=== PATIENT | female | born 1955 | race Caucasian/White ===

== ENCOUNTER 2017-12-02 09:24 | Inpatient (IN) | payer MEDICARE ==
[2017-12-02] MEDS ORDERED: Sodium Chloride 0.9% 1,000 ML IV ONE (10:30)
[2017-12-02 11:08] LABS: % BASOPHILS 0.6 % (0.0-2.0); % EOSINOPHILS 0.2 % (0.0-5.0); % LYMPHOCYTES 8.8 % (20.0-50.0); % MONOCYTES 5.8 % (2.0-10.0); % NEUTROPHILS 84.6 % (40.0-80.0); HEMOGLOBIN 12.9 gm/dL (12-16); LYMPHOCYTE ABSOLUTE 0.5 Th/cmm (1.5-3.0); MEAN CELL VOLUME 92.8 fl (81-100); MEAN CORPUSCULAR HEMOGLOBIN 30.8 pg (27.0-31.0); MEAN CORPUSCULAR HGB CONC 33.2 pg (28.0-36.0); MEAN PLATELET VOLUME 7.8 fl; MONOCYTE ABSOLUTE 0.3 Th/cmm (0.3-1.0); NEUTROPHILE ABSOLUTE 4.9 Th/cmm (1.8-8.0); PLATELET COUNT 315 Th/cmm (150-400); RED CELL DISTRIBUTION WIDTH 11.7 % (11.5-20.0); WHITE BLOOD COUNT 5.7 Th/cmm (4.8-10.8)
[2017-12-02 11:21] LABS: ALB/GLOB RATIO 1.6 (1.0-1.8); ALBUMIN 4.9 gm/dL (3.7-5.3); ALKALINE PHOSPHATASE 121 U/L (34-104); AMYLASE SERUM 111 U/L (29-103); ANION GAP 14.7 (7.0-16.0); BILIRUBIN,TOTAL 0.4 mg/dL (0.3-1.0); BUN - UREA NITROGEN 12 mg/dL (7-25); CALCIUM SERUM 10.1 mg/dL (8.6-10.3); CHLORIDE 96 mEq/L (98-107); CHOLESTEROL 237 mg/dL (<200); CREATININE - SERUM 0.6 mg/dL (0.6-1.2); CREATININE KINASE 47 U/L (30-223); GFR AFRICAN-AMERICAN > 60.0 ml/min (>90); GFR NON AFRICAN-AMERICAN > 60.0 ml/min; GLUCOSE 123 mg/dL (70-105); HDL -HIGH DENSITY LIPOPROTEIN 103 mg/dL (23-92); POTASSIUM SERUM 3.7 mEq/L (3.5-5.1); SGOT 17 U/L (13-39); SGPT/ALT 10 U/L (7-52); SODIUM SERUM 132 mEq/L (136-145); TOTAL PROTEIN,SERUM 7.9 gm/dL (6.0-8.3); TRIGLYCERIDES 54 mg/dL (<150)
[2017-12-02 11:23] LABS: LIPASE < 3 U/L (11-82)
[2017-12-02 11:36] LABS: INR 1.04 (0.5-1.4); PROTHROMBIN TIME (TEST) 10.8 SECONDS (9.5-11.5)
--- NOTE | 2017-12-02 11:43 | ED Physician Chart ---
ED Chief Complaint/HPI - Patient Information Date Seen:: 12/02/17 Time Seen:: 09:45 Chief Complaint:: Abdominal Pain History of Present Illness:: onset x 3 days of intermittent, diffuse, crampy abdominal, N/V/D x 13; pt denies trauma, H/As, S/T, neck pain, C/P, SOB, A/C, fever, chills, or urinary s/ s Allergies:: Allergies Allergy/AdvReac Type Severity Reaction Status Date / Time ciprofloxacin [From Cipro] Allergy Mild Verified 12/02/17 09:40 pentoxifylline [From Trental] Allergy Mild Verified 12/02/17 09:40 azithromycin Allergy Verified 12/02/17 09:40 [From Zithromax Z-Fady] Vitals:: Vital Signs - 8 hr 12/02/17 09:45 Temp 98.9 F HR 118 RR 18 BP 180/100 O2 Sat % 99 Historian:: Patient Review:: Nurse's Note Reviewed ED Review of Systems - Review of Systems General/Constitutional: No fever, No chills, No weight loss, No weakness, No diaphoresis, No edema, No loss of appetite Skin: No skin lesions, No rash, No bruising Head: No headache, No light-headedness Eyes: No loss of vision, No pain, No diplopia ENT: No earache, No nasal drainage, No sore throat, No tinnitus Neck: No neck pain, No swelling, No thyromegaly, No stiffness, No mass noted Cardio Vascular: No chest pain, No palpitations, No PND, No orthopnea, No edema Pulmonary: No SOB, No cough, No sputum, No wheezing GI: Nausea, Vomiting, Diarrhea, Pain, No melena, No hematochezia, No constipation, No hematemesis G/U: No dysuria, No frequency, No hematuria, No nacturia Division Director: No vaginal discharge, No abnormal vaginal bleed, No contraction Musculoskeletal: No bone or joint pain, No back pain, No muscle pain Endocrine: No polyuria, No polydipsia Psychiatric: No prior psych history, No depression, No anxiety, No suicidal ideation, No homicidal ideation, No auditory hallucination, No visual hallucination Hematopoietic: No bruising, No lymphadenopathy Allergic/Immuno: No urticaria, No angioedema Neurological: No syncope, No focal symptoms, No weakness, No paresthesia, No headache, No seizure, No dizziness, No confusion, No vertigo ED Past Medical History - Past Medical History Obtainable: Yes Past Medical History: HTN Family History: HTN Social History: Smoker, No Alcohol, No Drug Use, Single Surgical History: None Psychiatricy History: None Medication: Reviewed ED Physical Exam - Physical Examination General/Constitutional: Awake, Well-developed, well-nourished, Alert, No distress, GCS 15, Non-toxic appearing, Ambulatory Head: Atraumatic Eyes: Lids, conjuctiva normal, PERRL, EOMI Skin: Nl inspection, No rash, No skin lesions, No ecchymosis, Well hydrated, No lymphadenopathy ENMT: External ears, nose nl, TM canals nl, Nasal exam nl, Lips, teeth, gums nl , Oropharynx nl, Tonsils nl Neck: Nontender, Full ROM w/o pain, No JVD, No nuchal rigidity, No bruit, No mass, No stridor Respiratory: Nl effort/Exclusion, Clear to Auscultation, No Wheeze/Rhonchi/Rales Cardio Vascular: RRR, No murmur, gallop, rubs, NL S1 S2, Carotid/Femoral/Distal pulses equal bilaterally GI: No tenderness/rebounding/guarding, No organomegaly, No hernia, Normal BS's, Nondistended, No mass/bruits, No McBurney tenderness, Rectum exam nl : No CVA tenderness Extremities: No tenderness or effusion, Full ROM, normal strength in all extremities, No edema, Normal digits & nails Neuro/Psych: Alert/oriented, DTR's symmetric, Normal sensory exam, Normal motor strength, Judgement/insight normal, Mood normal, Normal gait, No focal deficits Misc: Normal back, No paraspinal tenderness ED Labs/Radiology/EKG Results - Lab Results Results: Laboratory Tests 12/02/17 12/02/17 12/02/17 10:55 10:55 10:55 WBC 5.7 RBC 4.20 Hgb 12.9 Hct 39.0 L MCV 92.8 MCH 30.8 MCHC Differential 33.2 RDW 11.7 Plt Count 315 MPV 7.8 Neutrophils % 84.6 H Lymphocytes % 8.8 L Monocytes % 5.8 Eosinophils % 0.2 Basophils % 0.6 PT 10.8 INR 1.04 Sodium 132 L Potassium 3.7 Chloride 96 L Carbon Dioxide 25.0 Anion Gap 14.7 BUN 12 Creatinine 0.6 Est GFR ( Amer) > 60.0 Est GFR (Non-Af Amer) > 60.0 BUN/Creatinine Ratio 20.0 Glucose 123 H Calcium 10.1 Total Bilirubin 0.4 AST 17 ALT 10 Alkaline Phosphatase 121 H Creatine Kinase 47 Troponin I B-Natriuretic Peptide Total Protein 7.9 Albumin 4.9 Globulin 3.0 Albumin/Globulin Ratio 1.6 Triglycerides 54 Cholesterol 237 H LDL Cholesterol Direct 120 HDL Cholesterol 103 H Amylase 111 H Lipase < 3 L Serum , Qual 12/02/17 12/02/17 12/02/17 10:55 10:55 10:55 WBC RBC Hgb Hct MCV MCH MCHC Differential RDW Plt Count MPV Neutrophils % Lymphocytes % Monocytes % Eosinophils % Basophils % PT INR Sodium Potassium Chloride Carbon Dioxide Anion Gap BUN Creatinine Est GFR ( Amer) Est GFR (Non-Af Amer) BUN/Creatinine Ratio Glucose Calcium Total Bilirubin AST ALT Alkaline Phosphatase Creatine Kinase Troponin I 0.01 B-Natriuretic Peptide 108.0 H Total Protein Albumin Globulin Albumin/Globulin Ratio Triglycerides Cholesterol LDL Cholesterol Direct HDL Cholesterol Amylase Lipase Serum , Qual NEGATIVE Comments:: Na+: 132; Amylase: 111 - Radiology Results Comments:: NAD - EKG Interpretations EKG Time:: 10:37 Rate & Rhythm: 109; ST Comments:: non-specific st-t changes ED Septic Shock - . Is Septic Shock (SBP<90, OR Lactate>4 mmol\L) present?: No - <6hrs of presentation: Vital Signs: Vital Signs - 8 hr 12/02/17 09:45 Temp 98.9 F HR 118 RR 18 BP 180/100 O2 Sat % 99 ED Reassessment (Disposition) - Reassessment Reassessment Condition:: Improved - Diagnosis Diagnosis:: Dx: Abdominal Pain; N/V/D; AGE; Dehydration; Pancreatitis; Hyponatremia - Aftercare/Follow up Instructions Aftercare/Follow-Up Instructions:: Counseled pt regarding lab results/diagnosis & need follow up, Counseled pt & family regarding lab results/diagnosis & need follow up - Patient Disposition Discharge/Transfer:: Acute Care w/in this hosp Accepting Physician:: Dr. Prabhu Rodriguez Time Called:: 1130 Time Responded:: 11:30 Admitted to:: Med/Surg Spoke to:: Dr. Rodriguez Admitting Medical Physician:: Dr. Rodriguez Condition at Disposition:: Stable, Improved
[2017-12-02] MEDS ORDERED: IOHEXOL 300mgI/mL 100 ML VIAL ONE (12:34)
--- NOTE | 2017-12-02 14:04 | Diagnostic Imaging Report ---
CT abdomen and pelvis with intravenous contrast Indication: Abdominal pain Comparison: None, Technique: Axial images were obtained from the lung bases to the bilateral proximal femurs with IV contrast. Coronal reconstructions were made. total DLP: 303, CTDI7.5 FINDINGS: Hypoventilatory and atelectatic changes of the lungs are noted. Hepatic cysts are noted the largest adjacent to the falciform ligament measuring 1.5 x 1.3 cm. Additional subcentimeter low-density lesions are noted to small to characterize but suggestive of cysts. No radiopaque gallstones identified. No focal splenic lesions. Limited assessment of the pancreas demonstrates no focal lesions. No focal adrenal areas. No hydronephrosis. Sub-CM left renal lesion is noted, too small to characterize but probably representing a cyst. The urinary bladder is underdistended, limiting its evaluation. No evidence of appendicitis. Mild stool is noted greatest in the ascending colon and cecal region. No evidence of appendicitis. No free fluid or free air. Mild atherosclerosis is noted. Mild degenerative changes spine are noted with mild scoliosis. There is 3 mm anterolisthesis of L4 on L5 with vacuum disc phenomenon at this level. IMPRESSION: No evidence of bowel obstruction Mild stool greatest within the ascending colon and cecal region. No evidence of hydronephrosis. Hepatic cysts. Degenerative changes and 3 mm anterolisthesis of L4 on L5 likely due to underlying facet arthropathy.
[2017-12-02 14:56] VITALS: BP 168/87
[2017-12-02] MEDS ORDERED: D5-0.45NS 1,000 ML IV SCH (15:43)
--- NOTE | 2017-12-02 18:28 | History and Physical ---
History of Present Illness - HPI Chief Complaint: Abdominal Pain x 3 days HPI: 61 y/o female who presents to [facility] ER for 3 day history of abdominal pain which is intermittent, diffuse and cramps with nausea, vomiting and diarrhea. The patient denies trauma. Denies chest pain or shortness of breath. Denies fever, chills, or urinary symptoms. No neck pain PMH includes HTN Meds see medlist. Initial labwork WBC 5.7 H/H 12.9/39.0 platelets 315K Na 132 K 3.7 Bun 12 Cr 0.6 glucose 123 Amylase 111 Lipase <3 Patient was subsequently admitted for further evaluation and treatment. Vital Signs: Last Vital Signs Temp 98.2 F 12/02/17 14:50 Pulse 118 12/02/17 14:50 Resp 19 12/02/17 15:57 BP 168/87 12/02/17 14:56 Pulse Ox 97 12/02/17 14:50 Past Medical History Cardiovascular: Report: HTN Pulmonary: Report: No Pertinent Hx CUSTOMER RESPONSE REPRESENTATIVE: Report: No Pertinent Hx GI: Report: No Pertinent Hx Psych: Report: No Pertinent Hx Musculoskeletal: Report: No Pertinent Hx Rheumatologic: Report: No pertinent Hx Infectious Disease: Report: No Pertinent Hx Renal/: Report: No Pertinent Hx Endocrine: Report: No Pertinent Hx Dermatology: Report: No Pertinent Hx - Past Surgical History Past Surgical History: No pertinent Hx Social History Smoke: No Alcohol: None Drugs: None Lives: Alone - Medications Home Medications: Home Medication Medication Instructions Recorded Type Carbamazepine [Tegretol Xr] 400 mg PO BID 12/02/17 History Clonazepam [Clonazepam*] 0.5 mg PO TID 12/02/17 History Escitalopram Oxalate [Lexapro] 5 mg PO DAILY 12/02/17 History Lamotrigine [Lamictal] 200 mg PO DAILY 12/02/17 History Tizanidine HCl 4 mg PO DAILY 12/02/17 History Zolpidem Tartrate [Ambien Cr] 12.5 mg PO DAILY 12/02/17 History - Allergies Allergies/Adverse Reactions: Allergies Allergy/AdvReac Type Severity Reaction Status Date / Time ciprofloxacin [From Cipro] Allergy Mild Verified 12/02/17 09:40 pentoxifylline [From Trental] Allergy Mild Verified 12/02/17 09:40 azithromycin Allergy Verified 12/02/17 09:40 [From Zithromax Z-Fady] vortioxetine Allergy Verified 12/02/17 21:37 [From Trintellix] Review of Systems - Review of Systems Constitutional: Report: No Significant Eyes: Report: No Significant ENT: Report: No Significant Respiratory: Report: No Significant Cardiovascular: Report: No Significant Gastrointestinal: Report: Nausea, Vomiting, Abdominal Pain, Diarrhea Genitourinary: Report: No Significant Musculoskeletal: Report: No Significant Skin: Report: No Significant Neurological: Report: No Significant Physical Exam - Physical Exam HEENT: Report: Ears Nose Throat within normal limits, Pharnyx within normal limits Neck: Report: Within normal limits Cardiovascular Systems: Report: +s1/s2 noted, Regular, Rate and Rhythm Respiratory: Report: Breath Sounds are within normal limits, Clear to Auscultation of lung gillis Abdomen: Report: Abnormal Bowel Sounds. Denies: Guarding Extremities: Report: Non-tender to palpation. Skin: Report: Color of skin is within normal limits Neuro/Psych: Report: Mood affect is within normal limits, A+Ox3, CN II-XII intact - Assessment Assessment: Current Active Problems Problem Status Onset NAUSEA, VOMITING AND DIARRHEA Acute abdominal pain nausea, vomiting hyponatremia hypertension UTI - Plan Plan: keep NPO IV fluids IV Zofran IV Rocephin abd US GI consult
[2017-12-02] MEDS ORDERED: D5-0.9NS w/40 mEq KCL 1,000 ML IV SCH (18:45)
[2017-12-02] MEDS ORDERED: CLONAZEPAM 0.5 MG PO SCH (21:00)
[2017-12-02 23:55] LABS: URINE MICROSCOPIC INDICATED? YES; URINE SOURCE CLEAN C
[2017-12-03 00:06] LABS: URINE BILIRUBIN SMALL (NEGATIVE); URINE BLOOD MODERATE (NEGATIVE); URINE GLUCOSE (UA) NEGATIVE (NEGATIVE); URINE KETONE 40 mg/dL (NEGATIVE); URINE LEUKOCYTE ESTERASE NEGATIVE (NEGATIVE); URINE NITRATE NEGATIVE (NEGATIVE); URINE PH 7.5 (4.6 - 8.0); URINE PROTEIN TRACE mg/dL (NEGATIVE); URINE UROBILINOGEN 0.2 E.U./dL (0.2 - 1.0)
[2017-12-03 01:45] LABS: URINE CLARITY CLEAR (CLEAR); URINE COLOR YELLOW
[2017-12-03 01:50] LABS: URINE BACTERIA FEW /hpf (NONE SEEN); URINE EPITHELIAL CELLS FEW /lpf (FEW); URINE ICTOTEST NEGATIVE (NEGATIVE); URINE WBC 0-2 /hpf (0-5)
[2017-12-03] MEDS ORDERED: CLONAZEPAM 0.5 MG PO PRN (03:52)
[2017-12-03 06:32] LABS: % BASOPHILS 0.1 % (0.0-2.0); % EOSINOPHILS 0.8 % (0.0-5.0); % LYMPHOCYTES 20.9 % (20.0-50.0); % MONOCYTES 11.4 % (2.0-10.0); % NEUTROPHILS 66.8 % (40.0-80.0); HEMOGLOBIN 11.4 gm/dL (12-16); LYMPHOCYTE ABSOLUTE 0.9 Th/cmm (1.5-3.0); MEAN CELL VOLUME 93.1 fl (81-100); MEAN CORPUSCULAR HEMOGLOBIN 31.7 pg (27.0-31.0); MEAN PLATELET VOLUME 8.1 fl; MONOCYTE ABSOLUTE 0.5 Th/cmm (0.3-1.0); NEUTROPHILE ABSOLUTE 2.9 Th/cmm (1.8-8.0); PLATELET COUNT 254 Th/cmm (150-400); RED CELL DISTRIBUTION WIDTH 11.9 % (11.5-20.0)
[2017-12-03 06:35] LABS: HEMATOCRIT 33.5 % (41.0-60); WHITE BLOOD COUNT 4.3 Th/cmm (4.8-10.8)
[2017-12-03 06:46] LABS: ALB/GLOB RATIO 1.6 (1.0-1.8); ALBUMIN 4.1 gm/dL (3.7-5.3); ALKALINE PHOSPHATASE 98 U/L (34-104); ANION GAP 10.8 (7.0-16.0); BILIRUBIN,TOTAL 0.4 mg/dL (0.3-1.0); BUN - UREA NITROGEN 9 mg/dL (7-25); CALCIUM SERUM 9.1 mg/dL (8.6-10.3); CARBON DIOXIDE 23.6 mEq/L (21.0-31.0); CHLORIDE 99 mEq/L (98-107); CREATININE - SERUM 0.5 mg/dL (0.6-1.2); GFR AFRICAN-AMERICAN > 60.0 ml/min (>90); GFR NON AFRICAN-AMERICAN > 60.0 ml/min; GLUCOSE 121 mg/dL (70-105); POTASSIUM SERUM 3.4 mEq/L (3.5-5.1); SGOT 16 U/L (13-39); SGPT/ALT 9 U/L (7-52); SODIUM SERUM 130 mEq/L (136-145); TOTAL PROTEIN,SERUM 6.7 gm/dL (6.0-8.3)
[2017-12-03] MEDS ORDERED: cefTRIAXone 1 GM in Sodium Chloride 0.9% 50 ML IV SCH (07:00)
[2017-12-03] MEDS ORDERED: POTASSIUM CHLORIDE IV SCH (07:30)
--- NOTE | 2017-12-03 08:08 | General Progress Note ---
Subjective - Review of Systems Service Date: 12/03/17 Subjective: Patient was seen and examined. States that she was unable to sleep last night. abdominal pain better. less nausea and vomiting. Objective - Results Result Diagrams: 12/03/17 05:45 12/03/17 05:45 Recent Labs: Laboratory Last Values WBC 4.3 Th/cmm (4.8-10.8) L D 12/03/17 05:45 RBC 3.60 Mil/cmm (3.80-5.10) L 12/03/17 05:45 Hgb 11.4 gm/dL (12-16) L 12/03/17 05:45 Hct 33.5 % (41.0-60) L D 12/03/17 05:45 MCV 93.1 fl (81-100) 12/03/17 05:45 MCH 31.7 pg (27.0-31.0) H 12/03/17 05:45 MCHC Differential 34.0 pg (28.0-36.0) 12/03/17 05:45 RDW 11.9 % (11.5-20.0) 12/03/17 05:45 Plt Count 254 Th/cmm (150-400) 12/03/17 05:45 MPV 8.1 fl 12/03/17 05:45 Neutrophils % 66.8 % (40.0-80.0) 12/03/17 05:45 Lymphocytes % 20.9 % (20.0-50.0) 12/03/17 05:45 Monocytes % 11.4 % (2.0-10.0) H 12/03/17 05:45 Eosinophils % 0.8 % (0.0-5.0) 12/03/17 05:45 Basophils % 0.1 % (0.0-2.0) 12/03/17 05:45 PT 10.8 SECONDS (9.5-11.5) 12/02/17 10:55 INR 1.04 (0.5-1.4) 12/02/17 10:55 Sodium 130 mEq/L (136-145) L 12/03/17 05:45 Potassium 3.4 mEq/L (3.5-5.1) L 12/03/17 05:45 Chloride 99 mEq/L (98-107) 12/03/17 05:45 Carbon Dioxide 23.6 mEq/L (21.0-31.0) 12/03/17 05:45 Anion Gap 10.8 (7.0-16.0) 12/03/17 05:45 BUN 9 mg/dL (7-25) 12/03/17 05:45 Creatinine 0.5 mg/dL (0.6-1.2) L 12/03/17 05:45 Est GFR ( Amer) > 60.0 ml/min (>90) 12/03/17 05:45 Est GFR (Non-Af Amer) > 60.0 ml/min 12/03/17 05:45 BUN/Creatinine Ratio 18.0 12/03/17 05:45 Glucose 121 mg/dL (70-105) H 12/03/17 05:45 Calcium 9.1 mg/dL (8.6-10.3) 12/03/17 05:45 Total Bilirubin 0.4 mg/dL (0.3-1.0) 12/03/17 05:45 AST 16 U/L (13-39) 12/03/17 05:45 ALT 9 U/L (7-52) 12/03/17 05:45 Alkaline Phosphatase 98 U/L (34-104) 12/03/17 05:45 Creatine Kinase 47 U/L (30-223) 12/02/17 10:55 Troponin I 0.01 ng/mL (0.01-0.05) 12/02/17 10:55 B-Natriuretic Peptide 108.0 pg/mL (5.0-100.0) H 12/02/17 10:55 Total Protein 6.7 gm/dL (6.0-8.3) 12/03/17 05:45 Albumin 4.1 gm/dL (3.7-5.3) 12/03/17 05:45 Globulin 2.6 gm/dL 12/03/17 05:45 Albumin/Globulin Ratio 1.6 (1.0-1.8) 12/03/17 05:45 Triglycerides 54 mg/dL (<150) 12/02/17 10:55 Cholesterol 237 mg/dL (<200) H 12/02/17 10:55 LDL Cholesterol Direct 120 mg/dL (75-193) 12/02/17 10:55 HDL Cholesterol 103 mg/dL (23-92) H 12/02/17 10:55 Amylase 111 U/L (29-103) H 12/02/17 10:55 Lipase < 3 U/L (11-82) L 12/02/17 10:55 Serum , Qual NEGATIVE (NEGATIVE) 12/02/17 10:55 Urine Source CLEAN C 12/02/17 21:00 Urine Color YELLOW 12/02/17 21:00 Urine Clarity CLEAR (CLEAR) 12/02/17 21:00 Urine pH 7.5 (4.6 - 8.0) 12/02/17 21:00 Ur Specific [place] 1.010 (1.005-1.030) 12/02/17 21:00 Urine Protein TRACE mg/dL (NEGATIVE) 12/02/17 21:00 Urine Glucose (UA) NEGATIVE mg/dL (NEGATIVE) 12/02/17 21:00 Urine Ketones 40 mg/dL (NEGATIVE) H 12/02/17 21:00 Urine Blood MODERATE (NEGATIVE) H 12/02/17 21:00 Urine Nitrate NEGATIVE (NEGATIVE) 12/02/17 21:00 Urine Bilirubin SMALL (NEGATIVE) H 12/02/17 21:00 Urine Ictotest NEGATIVE (NEGATIVE) 12/02/17 21:00 Urine Urobilinogen 0.2 E.U./dL (0.2 - 1.0) 12/02/17 21:00 Ur Leukocyte Esterase NEGATIVE (NEGATIVE) 12/02/17 21:00 Urine RBC 2-5 /hpf (0-5) 12/02/17 21:00 Urine WBC 0-2 /hpf (0-5) 12/02/17 21:00 Ur Epithelial Cells FEW /lpf (FEW) 12/02/17 21:00 Urine Bacteria FEW /hpf (NONE SEEN) 12/02/17 21:00 - Physical Exam Vitals and I&O: Vital Signs Temp 97.7 F 12/03/17 04:00 Pulse 107 12/03/17 04:00 Resp 20 12/03/17 04:00 BP 167/80 12/03/17 04:00 Pulse Ox 98 12/03/17 04:00 Intake & Output 12/02/17 12/03/17 12/03/17 18:59 06:59 18:59 Weight (lbs) 46.357 kg 46.402 kg Other: # Voids 2 4 # Bowel Movements 0 Weight Source Bedscale Bedscale Active Medications: Current Medications Carbamazepine (Tegretol) 400 mg PO BID BIGG PRN Reason: Protocol Stop: 01/31/18 16:59 Last Admin: 12/02/17 17:00 Dose: Not Given Escitalopram Oxalate (Lexapro) 5 mg PO DAILY BIGG PRN Reason: Protocol Stop: 02/01/18 08:59 Potassium Chloride/Dextrose/Sod Cl (D5-0.9ns W/40 Meq Kcl) 1,000 mls @ 75 mls/ hr IV .[id number] BIGG Stop: 01/31/18 18:44 Ceftriaxone Sodium 1 gm/ (Sodium Chloride) 50 mls @ 100 mls/hr IV Q24HR [facility] Stop: 02/01/18 06:59 Potassium Chloride (Potassium Chloride) 20 meq in 100 mls @ 50 mls/hr IV Q2H [facility] Stop: 12/03/17 11:29 Lamotrigine (Lamictal) 200 mg PO DAILY [facility] Stop: 02/01/18 08:59 Lorazepam (Ativan) 0.5 mg IVP Q4HR PRN; Protocol PRN Reason: Anxiety Stop: 02/01/18 07:45 Miscellaneous (Clonazepam [Clonazepam*]) 0.5 mg PO TID PRN PRN Reason: Anxiety Stop: 01/31/18 20:59 Ondansetron HCl (Zofran) 4 mg IV Q6H PRN PRN Reason: Nausea / Vomiting Stop: 01/31/18 15:43 Last Admin: 12/03/17 00:22 Dose: 4 mg Pantoprazole Sodium (Protonix) 40 mg IVP DAILY [facility] Stop: 02/01/18 08:59 Tizanidine HCl (Zanaflex) 4 mg PO DAILY [facility] Stop: 02/01/18 08:59 Zolpidem Tartrate (Ambien) 5 mg PO HS PRN PRN Reason: Insomnia Stop: 02/01/18 07:38 General: Alert, Oriented x3 HEENT: Atraumatic, PERRLA Neck: Supple Cardiovascular: Regular rate, Normal S1, Normal S2 Lungs: Clear to auscultation Abdomen: Bowel sounds, Soft Extremities: no Clubbing, no Cyanosis Assessment/Plan - Problem List Patient Problems: All Active Problems NAUSEA, VOMITING AND DIARRHEA (Acute) - Assessment Assessment: Current Active Problems Problem Status Onset NAUSEA, VOMITING AND DIARRHEA Acute abdominal pain nausea, vomiting hyponatremia hypertension UTI - Plan Plan: keep NPO IV fluids IV Zofran IV Rocephin abd US GI consult
[2017-12-03] MEDS ORDERED: Potassium Chloride 40 MEQ, Lidocaine 1% 20mL Vial 25 MG in Sodium Chloride 0.9% 250 ML IV ONE (08:32)
[2017-12-03] MEDS ORDERED: ZOLPIDEM TARTRATE 12.5 MG PO SCH (09:00)
[2017-12-03] MEDS ORDERED: Non-Formulary Item 1 EA (Carbamazepine [Tegretol Xr] 400 MG) PO SCH (09:00)
--- NOTE | 2017-12-03 10:23 | Consultation ---
DATE OF CONSULTATION: 12/03/2017 AGE: 61. SEX: Female. PHYSICIAN: Dr. Malik. BRICKMASON HELPER: Dr. Lee. TYPE OF THE REPORT: Psychiatric consult. REASON FOR THE CONSULT: Adjusting psychotropic medications. HISTORY OF PRESENT ILLNESS: The patient is a 61-year-old female who was admitted to the hospital because of nausea and vomiting. The patient has been also anxious. The patient has been feeling depressed because of her nausea. The patient has history of bipolar disorder and the patient has not been able to take any of her medications at this time because of her vomiting. She also has been feeling sad and depressed. Her medications is upheld at this time. The patient is supposed to take Lexapro as well as Lamictal. She denies any intention to harm herself or others. PAST PSYCHIATRIC HISTORY: The patient has a history of bipolar disorder and the psychiatric hospitalization. The patient denies any recent history of hospitalization. PAST MEDICAL HISTORY: The patient admitted to the hospital with nausea. SOCIAL HISTORY: The patient is for the second time and living with her . She has 2 sons and 1 daughter. She denies any alcohol or any street drug use. ALLERGIES: TRINTELLIX. MENTAL STATUS EXAM: The patient appears her stated age. Anxious. Cooperative. Thought processes are mainly goal directed. The patient denies any auditory or visual hallucinations or delusions. She denies any intention to harm herself or others. The patient is alert and oriented to time, place, person, and situation. Intact immediate, recent and remote memories. Fair insight. Fair judgment. She seems to be of average intelligence based on her verbal ability. ASSESSMENT: PRIMARY DIAGNOSIS: Bipolar disorder, depressed episode, moderate to severe. TREATMENT PLAN: We will continue to monitor her behavior and her condition closely. We will start individual as well as milieu psychotherapy. We will monitor psychotropic medications and at this time we will give Ativan on a p.r.n. basis. We will give it IV until patient can take p.o. medications. The patient will be given her psychotropic medications when she is able to tolerate her medications. Thanks to Dr. Malik and will follow up with you. [facility]# [id number]
[2017-12-03] MEDS: Escitalopram Oxalate 5 mg Tab PO SCH (11:26)
--- NOTE | 2017-12-03 12:11 | Diagnostic Imaging Report ---
Ultrasound abdomen HISTORY: Abdominal pain COMPARISON: CT abdomen and pelvis on 12/02/2017 Technique: Sonography of the abdomen was performed in multiple planes. FINDINGS: The liver demonstrates normal echogenicity. The liver measures 14.7 cm. The small cysts seen on recent CT examination were not well identified sonographically. No evidence of gallstones or gallbladder wall thickening. The common bile duct measures 3 mm. Evaluation of the pancreas is limited due to bowel gas. The right kidney measures 9.4 x 3.5 cm. No evidence of focal lesions or hydronephrosis. The left kidney measures 10.1 x 4.4 cm. No evidence of focal lesions or hydronephrosis. The spleen measures 8.6 cm. Atherosclerosis of the aorta is noted. IMPRESSION: No evidence of gallstones. No evidence of hydronephrosis. Atherosclerotic vascular disease.
--- NOTE | 2017-12-03 17:19 | Consultation ---
DATE OF CONSULTATION: 12/03/2017 INPATIENT GI CONSULTATION CONSULTING PHYSICIAN: Dr. Malik. REASON FOR CONSULTATION: Diarrhea, nausea, and vomiting. HISTORY OF PRESENT ILLNESS: The patient is a 61-year-old female who presents to the hospital with what she describes as 1 week of diarrhea, nausea, and vomiting. The patient also was at [facility] last week for this as well, at which time she also reported having a seizure after having vomiting and not being able to take her anti-seizure meds for a few days before this. The patient notes that she left AMA from [facility] as they were not treating her adequately at that time. She did feel better while she was in the hospital and felt better for 2 days after her discharge. However, for the past several days, she has noticed the onset of diarrhea, nausea, and vomiting again. She reports having up to 10 times of loose stool each night. This has not happened to her before. She never before had colonoscopy or EGD. PAST MEDICAL HISTORY: Seizure disorder, hypertension, and anxiety. 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 FAMILY HISTORY: Noncontributory. SOCIAL HISTORY: The patient does not smoke marijuana, does not smoke or use other illicit drugs or drink alcohol. ALLERGIES: REPORTS ALLERGY TO CIPROFLOXACIN, PENTOXIFYLLINE, AZITHROMYCIN, AND VORTIOXETINE. REVIEW OF SYSTEMS: A 12-point review of systems was performed with the patient and is negative other than the pertinent positives mentioned in the history of present illness. CURRENT MEDICATIONS: Carbamazepine, ceftriaxone, Klonopin, Lexapro, Lamictal, Ativan, Flagyl, Zofran, Protonix, Zanaflex, and Ambien. PHYSICAL EXAMINATION: VITAL SIGNS: Blood pressure is 156/81, temperature 97.3, pulse 110 beats per minute, oxygenation 95% on room air. GENERAL: The patient is lying flat in bed. She is alert and oriented x3. She is in a mild amount of anxiety. HEENT: Normocephalic, atraumatic-appearing head. Pupils are equal and reactive to light. Extraocular muscles are intact. No scleral icterus. Moist mucous membranes. NECK: Supple. No JVD or thyromegaly or lymphadenopathy. CHEST: Clear to auscultation bilaterally. CARDIOVASCULAR: S1, S2 are present, tachycardic. ABDOMEN: Soft. There is tenderness to palpation diffusely. No guarding, no rebound, no distention. EXTREMITIES: No pitting edema. Pulses are present. SKIN: No obvious jaundice or cyanosis. LABORATORY DATA: White blood cell count 4.3, hemoglobin 11.4, platelet count is 254. INR is 1.04. Sodium 130, BUN is 9, creatinine 0.5, total bilirubin 0.4, AST 16, ALT 9. Carbamazepine level of 7.7. An abdomen and pelvis CT scan was performed with IV contrast and showed no evidence of bowel obstruction. Mild stool, greatest within the ascending colon and cecal region. No evidence of hydronephrosis. IMPRESSION: This is a 61-year-old female with seizure disorder on carbamazepine who has been having 2 weeks of nausea, vomiting, diarrhea, and a possible seizure at [facility] from which she left [facility]. 1. Nausea, vomiting. 2. Diarrhea. 3. Seizure disorder, on carbamazepine. DISCUSSION: Differential diagnosis is broad, includes such entities as an infectious gastroenteritis, inflammatory enteritis or colitis, gastroparesis, or less likely malignancy given the acuity of her symptoms. At this point, the patient has not had a trial of antibiotics as she left [facility] from [facility]. Thus, I will add Flagyl onto her ceftriaxone that has already been administered to see if it has any effect on her symptoms. Additionally, we will try to get stool cultures, ova and parasites, as well as C. diff in order to ensure that this has not been contributing. If she fails to improve with these conservative measures, we can elect to pursue upper and lower endoscopy although we prefer to not perform these exams while the patient has an enteritis of an infectious etiology. The patient will need a colonoscopy for screening purposes if it is not done while she is here in the hospital. RECOMMENDATION: 1. We will add Flagyl to ceftriaxone. She is allergic to ciprofloxacin. Thus, we will not add a fluoroquinolone at this time. 2. Follow up the abdominal ultrasound has been ordered. 3. If nausea and vomiting continue, we can consider doing EGD and colonoscopy while she is here in the hospital. 4. Restart the patient on a soft liquid diet after ultrasound. We will send the aforementioned stool culture, ova, and parasites, and C. diff as mentioned. Thank you for allowing me to participate in this patient's care. Please call me with any questions. JOB# [id number]
--- NOTE | 2017-12-04 07:52 | General Progress Note ---
Subjective - Review of Systems Service Date: 12/04/17 Subjective: Patient was seen and examined. States that she was unable to sleep last night. abdominal pain better. less nausea and vomiting. eating better. Able to eat dinner last night without N/V Objective - Results Result Diagrams: 12/03/17 05:45 12/03/17 05:45 Recent Labs: Laboratory Last Values WBC 4.3 Th/cmm (4.8-10.8) L D 12/03/17 05:45 RBC 3.60 Mil/cmm (3.80-5.10) L 12/03/17 05:45 Hgb 11.4 gm/dL (12-16) L 12/03/17 05:45 Hct 33.5 % (41.0-60) L D 12/03/17 05:45 MCV 93.1 fl (81-100) 12/03/17 05:45 MCH 31.7 pg (27.0-31.0) H 12/03/17 05:45 MCHC Differential 34.0 pg (28.0-36.0) 12/03/17 05:45 RDW 11.9 % (11.5-20.0) 12/03/17 05:45 Plt Count 254 Th/cmm (150-400) 12/03/17 05:45 MPV 8.1 fl 12/03/17 05:45 Neutrophils % 66.8 % (40.0-80.0) 12/03/17 05:45 Lymphocytes % 20.9 % (20.0-50.0) 12/03/17 05:45 Monocytes % 11.4 % (2.0-10.0) H 12/03/17 05:45 Eosinophils % 0.8 % (0.0-5.0) 12/03/17 05:45 Basophils % 0.1 % (0.0-2.0) 12/03/17 05:45 PT 10.8 SECONDS (9.5-11.5) 12/02/17 10:55 INR 1.04 (0.5-1.4) 12/02/17 10:55 Sodium 130 mEq/L (136-145) L 12/03/17 05:45 Potassium 3.4 mEq/L (3.5-5.1) L 12/03/17 05:45 Chloride 99 mEq/L (98-107) 12/03/17 05:45 Carbon Dioxide 23.6 mEq/L (21.0-31.0) 12/03/17 05:45 Anion Gap 10.8 (7.0-16.0) 12/03/17 05:45 BUN 9 mg/dL (7-25) 12/03/17 05:45 Creatinine 0.5 mg/dL (0.6-1.2) L 12/03/17 05:45 Est GFR ( Amer) > 60.0 ml/min (>90) 12/03/17 05:45 Est GFR (Non-Af Amer) > 60.0 ml/min 12/03/17 05:45 BUN/Creatinine Ratio 18.0 12/03/17 05:45 Glucose 121 mg/dL (70-105) H 12/03/17 05:45 Calcium 9.1 mg/dL (8.6-10.3) 12/03/17 05:45 Total Bilirubin 0.4 mg/dL (0.3-1.0) 12/03/17 05:45 AST 16 U/L (13-39) 12/03/17 05:45 ALT 9 U/L (7-52) 12/03/17 05:45 Alkaline Phosphatase 98 U/L (34-104) 12/03/17 05:45 Creatine Kinase 47 U/L (30-223) 12/02/17 10:55 Troponin I 0.01 ng/mL (0.01-0.05) 12/02/17 10:55 B-Natriuretic Peptide 108.0 pg/mL (5.0-100.0) H 12/02/17 10:55 Total Protein 6.7 gm/dL (6.0-8.3) 12/03/17 05:45 Albumin 4.1 gm/dL (3.7-5.3) 12/03/17 05:45 Globulin 2.6 gm/dL 12/03/17 05:45 Albumin/Globulin Ratio 1.6 (1.0-1.8) 12/03/17 05:45 Triglycerides 54 mg/dL (<150) 12/02/17 10:55 Cholesterol 237 mg/dL (<200) H 12/02/17 10:55 LDL Cholesterol Direct 120 mg/dL (75-193) 12/02/17 10:55 HDL Cholesterol 103 mg/dL (23-92) H 12/02/17 10:55 Amylase 111 U/L (29-103) H 12/02/17 10:55 Lipase < 3 U/L (11-82) L 12/02/17 10:55 Serum , Qual NEGATIVE (NEGATIVE) 12/02/17 10:55 Urine Source CLEAN C 12/02/17 21:00 Urine Color YELLOW 12/02/17 21:00 Urine Clarity CLEAR (CLEAR) 12/02/17 21:00 Urine pH 7.5 (4.6 - 8.0) 12/02/17 21:00 Ur Specific [place] 1.010 (1.005-1.030) 12/02/17 21:00 Urine Protein TRACE mg/dL (NEGATIVE) 12/02/17 21:00 Urine Glucose (UA) NEGATIVE mg/dL (NEGATIVE) 12/02/17 21:00 Urine Ketones 40 mg/dL (NEGATIVE) H 12/02/17 21:00 Urine Blood MODERATE (NEGATIVE) H 12/02/17 21:00 Urine Nitrate NEGATIVE (NEGATIVE) 12/02/17 21:00 Urine Bilirubin SMALL (NEGATIVE) H 12/02/17 21:00 Urine Ictotest NEGATIVE (NEGATIVE) 12/02/17 21:00 Urine Urobilinogen 0.2 E.U./dL (0.2 - 1.0) 12/02/17 21:00 Ur Leukocyte Esterase NEGATIVE (NEGATIVE) 12/02/17 21:00 Urine RBC 2-5 /hpf (0-5) 12/02/17 21:00 Urine WBC 0-2 /hpf (0-5) 12/02/17 21:00 Ur Epithelial Cells FEW /lpf (FEW) 12/02/17 21:00 Urine Bacteria FEW /hpf (NONE SEEN) 12/02/17 21:00 Carbamazepine 7.7 ug/ml (4.0-12.0) 12/03/17 05:45 - Physical Exam Vitals and I&O: Vital Signs Temp 97.8 F 12/04/17 04:13 Pulse 91 12/04/17 04:13 Resp 17 12/04/17 04:13 BP 148/74 12/04/17 04:13 Pulse Ox 96 12/04/17 04:13 Intake & Output 12/03/17 12/04/17 12/04/17 18:59 06:59 18:59 Intake Total 50 720 Balance 50 720 Weight (lbs) 49.85 kg Intake: Intake, IV Amount 50 cefTRIAXone 1 gm In 50 Sodium Chloride 0.9% 50 ml @ 100 mls/hr IV Q24HR [facility] Rx#:[id number] Oral 720 Other: # Voids 4 # Bowel Movements 1 Stool Characteristics Soft Weight Source Bedscale Active Medications: Current Medications Carbamazepine (Tegretol) 400 mg PO BID BIGG PRN Reason: Protocol Stop: 01/31/18 16:59 Last Admin: 12/03/17 17:23 Dose: 400 mg Clonazepam (Klonopin) 0.5 mg PO TID PRN PRN Reason: anxiety Stop: 02/01/18 08:19 Last Admin: 12/03/17 11:26 Dose: 0.5 mg Escitalopram Oxalate (Lexapro) 5 mg PO DAILY BIGG PRN Reason: Protocol Stop: 02/01/18 08:59 Last Admin: 12/03/17 11:26 Dose: Not Given Potassium Chloride/Dextrose/Sod Cl (D5-0.9ns W/40 Meq Kcl) 1,000 mls @ 75 mls/ hr IV .[id number] [facility] Stop: 01/31/18 18:44 Last Admin: 12/03/17 09:32 Dose: 75 mls/hr Ceftriaxone Sodium 1 gm/ (Dextrose) 50 mls @ 100 mls/hr IV Q24HR [facility] Stop: 02/02/18 06:59 Last Admin: 12/04/17 06:15 Dose: 100 mls/hr Lamotrigine (Lamictal) 200 mg PO DAILY [facility] Stop: 02/01/18 08:59 Last Admin: 12/03/17 11:26 Dose: 200 mg Lorazepam (Ativan) 0.5 mg IVP Q4HR PRN; Protocol PRN Reason: Anxiety Stop: 02/01/18 07:45 Last Admin: 12/04/17 01:52 Dose: 0.5 mg Metronidazole (Flagyl) 500 mg PO BID [facility] Stop: 02/01/18 16:59 Last Admin: 12/03/17 17:23 Dose: 500 mg Ondansetron HCl (Zofran) 4 mg IV Q6H PRN PRN Reason: Nausea / Vomiting Stop: 01/31/18 15:43 Last Admin: 12/03/17 00:22 Dose: 4 mg Pantoprazole Sodium (Protonix) 40 mg IVP DAILY [facility] Stop: 02/01/18 08:59 Last Admin: 12/03/17 09:32 Dose: 40 mg Tizanidine HCl (Zanaflex) 4 mg PO DAILY BIGG Stop: 02/01/18 08:59 Last Admin: 12/03/17 11:33 Dose: 4 mg Zolpidem Tartrate (Ambien) 5 mg PO HS PRN PRN Reason: Insomnia Stop: 02/01/18 07:38 Last Admin: 12/03/17 22:43 Dose: 5 mg General: Alert, Oriented x3 HEENT: Atraumatic, PERRLA Neck: Supple Cardiovascular: Regular rate, Normal S1, Normal S2 Lungs: Clear to auscultation Abdomen: Bowel sounds, Soft Extremities: no Clubbing, no Cyanosis Assessment/Plan - Problem List Patient Problems: All Active Problems NAUSEA, VOMITING AND DIARRHEA (Acute) - Assessment Assessment: Current Active Problems Problem Status Onset NAUSEA, VOMITING AND DIARRHEA Acute abdominal pain nausea, vomiting hyponatremia hypokalemia hypertension UTI - Plan Plan: keep NPO IV fluids IV Zofran IV Rocephin abd US GI consult BMP today. If Na, K okay may be discharged. Nutritional Asmnt/Malnutr-PDOC - Dietary Evaluation Malnutrition Findings (Please click <Entered> for more info): Nutritional Asmnt/Malnutrition Start: 12/03/17 15: 47 Text: Status: Complete Freq: Document 12/03/17 15:48 HENG (Rec: 12/03/17 16:13 [id number] Nutritional Asmnt/Malnutrition Patient General Information Nutritional Screening High Risk Consult Diagnosis abdominal pain, dehydration Pertinent Medical Hx/Surgical Hx HTN Subjective Information Consult received for wt loss. Pt seen sitting up in bed at time of visit, awake and alert . Pt reported abd pain, N/V and poor PO intake for 3-4 and she had the same condition a week agao. Pt noted some wt loss during this period d/t poor oral intake. Pt had no N/ V today so far, consumed jello , rice, bread broth and veggie at lunch, about 30% of lunch. Took dinner order from pt. Current Diet Order/ Nutrition Support soft/bland Pertinent Medications protonix, D5-0.9ns w/40meq kcl Pertinent Labs 12/03 Na 130, K 3.4, cl 99, BUN 9, Cr 0.5, glucose 121, Ca 91 Nutritional Hx/Data Height 1.55 m Height (Calculated Centimeters) 154.9 Current Weight (lbs) 46.266 kg Weight (Calculated Kilograms) 46.3 Weight (Calculated Grams) 81591.4 Usual body Weight (lbs) 106 [place] Body Weight 105 Body Mass Index (BMI) 19.3 Weight Status Approriate GI Symptoms GI Symptoms None Last BM none Difficult in: None Skin Integrity/Comment: intact Current %PO Poor (25-49%) Estimated Nutritional Goals BEE in Kcals: Using Current wt Calories/Kcals/Kg 25-30 Kcals Calculated 4568-1089 Protein: Using Current wt Protein g/k Protein Calculated 46 Fluid: ml 1150-1380ml (1ml/kcal) Nutritional Problem 1. Problem Problem inadequate food intake Etiology poor appetite, N/V x 3 days Signs/Symptoms: poor PO intake in last 3 days Intervention/Recommendation Comments 1. Continue with current diet as ordered. If PO intake continue low, will consider nutrition supplements. 2. Monitor PO intake, wt, labs and skin integrity 3. F/U as high risk in 2-3 days, 12/05-12/06 Expected Outcomes/Goals Expected Outcomes/Goals 1. PO intake to meet at least 75% of nutritional needs. 2. Wt stability, skin to remain intact, labs to approach WNL.
[2017-12-04] MEDS: Escitalopram Oxalate 5 mg Tab PO SCH (08:16)
[2017-12-04 08:35] LABS: ANION GAP 12.5 (7.0-16.0); BUN - UREA NITROGEN 6 mg/dL (7-25); CALCIUM SERUM 9.4 mg/dL (8.6-10.3); CARBON DIOXIDE 23.2 mEq/L (21.0-31.0); CHLORIDE 98 mEq/L (98-107); CREATININE - SERUM 0.5 mg/dL (0.6-1.2); GFR AFRICAN-AMERICAN > 60.0 ml/min (>90); GFR NON AFRICAN-AMERICAN > 60.0 ml/min; GLUCOSE 111 mg/dL (70-105); POTASSIUM SERUM 3.7 mEq/L (3.5-5.1); SODIUM SERUM 130 mEq/L (136-145)
== END 2017-12-04 10:40 | disposition home or self-care (01) | DRG 640 ==
LOC: ER 09:24 → MSI 13:12
PROVIDERS: ADMIT Family Medicine; ATTEND Family Medicine
DX: E87.1 Hypo-osmolality and hyponatremia (principal); K85.90 Acute pancreatitis without necrosis or infection, unspecified; N39.0 Urinary tract infection, site not specified; F31.4 Bipolar disorder, current episode depressed, severe, without psychotic features; I10 Essential (primary) hypertension; G40.909 Epilepsy, unspecified, not intractable, without status epilepticus; E87.6 Hypokalemia; Z82.49 Family history of ischemic heart disease and other diseases of the circulatory system; E86.0 Dehydration; K52.9 Noninfective gastroenteritis and colitis, unspecified; Z88.8 Allergy status to other drugs, medicaments and biological substances; Z88.1 Allergy status to other antibiotic agents
CPT/HCPCS: 36415-UA; 76700-TC; 80048-TC; 80053-TC; 80061-TC; 80156-TC; 81001-TC; 81003-TC; 82150-TC; 82550-TC; 83690-TC; 83880-TC; 84484-TC; 84703-TC; 85025-TC; 85610-TC; 87086-90; 87230-TC; 93005; 94760; 96374; C9113; J0696; J2001; J2060; J2405; J3480; J7030; Q9967; Z7610